=== PATIENT | female | born 1965 | race Caucasian/White ===

== ENCOUNTER 2023-04-06 02:05 | Outpatient (CLI) | payer MEDICAID, SELFPAY ==
--- NOTE | 2023-04-06 | DI.CTLCSR_ITS ---
Exam(s) CT CHEST LUNG CANCER SCREEN EXAM: CT CHEST LUNG CANCER SCREEN CLINICAL HISTORY: SCREENING FOR LUNG CANCER Z12.2 FORMER SMOKER TECHNIQUE: Imaging Protocol: Axial computed tomography images with coronal and sagittal reformatted images were created and reviewed COMPARISON: No exams were available for comparison FINDINGS: The examination is limited due to patient motion artifact. Tracheobronchial tree: Patent where visualized. Pulmonary parenchyma: No consolidation or dominant measurable mass. There is scarring and calcificati ons seen in the left major fissure. Lung Nodules: There is a 4 mm nodule in the medial aspect of the right lower lobe. Mediastinum and Heather: No dominant adenopathy or fluid collection. The esophagus is unremarkable. Thyroid gland: Unremarkable. Lymph nodes: Unremarkable. Pleura: No effusion or pneumothorax. Heart: The heart is not dilated. Mild coronary artery calcification. No pericardial effusion. Aorta: Thoracic aorta non-dilated.Atherosclerosis. Upper abdomen: Unremarkable. Soft Tissues: Unremarkable. Bones: Within normal limits. IMPRESSION: 4 mm right lower lobe pulmonary nodule. Lung RADS Cat 3 - Probably Benign: Probably benign finding(s) - short term follow-up suggested; inclu de nodules with a low likelihood of becoming a clinically active cancer. Lung-RADS 1.0 CATEGORIES: Category 0 - Prior chest CT exam(s) being located for comparison. Category 1 - Annual screening in 12 months. No nodules or definitely benign nodules. Category 2 - Annual screening in 12 months. Benign appearance. Nodules with low likelihood of becomin g active cancer. Category 3 - 6-month follow-up. Probably benign. Short-term follow-up suggested. Nodules with low lik elihood of becoming active cancer. Category 4A - 3-month follow-up and CT/PET if >8 mm in size. Suspicious finding. Findings which requi re additional testing. Category 4B - Findings which require additional testing and tissue sampling. Suspicious finding. Category 4X - Category 3 or 4 nodules with additional features or imaging findings that increases the suspicion of malignancy. Modifier S- Potentially clinically significant finding. (Non lung cancer) RADIATION DOSE DELIVERED: 75.31mGy.cm Total DLP 75.31mGy.cmTotal DLP DATA REPOSITORY: All CT scans at this facility are submitted to the National Radiology Data Registry (NRDR) Dose Index Registry (DIR) with the [employer] (ACR). RADIATION OPTIMIZATION: All CT scans at this facility use at least one of these dose optimization te chniques: automated exposure control; mA and/or kV adjustment per patient size (includes targeted exa ms where dose is matched to clinical indication); or iterative reconstruction.
== END 2023-04-06 02:25 ==
LOC: DI 02:05
PROVIDERS: Visit Provider Nurse Practitioner Family
DX: Z12.2 Encounter for screening for malignant neoplasm of respiratory organs (principal); R91.1 Solitary pulmonary nodule
CPT/HCPCS: 71271

== ENCOUNTER → 2023-09-29 02:38 | Outpatient (CLI) | payer MEDICAID, SELFPAY ==
--- NOTE | 2023-09-29 | DI.CTLCSR_ITS ---
Exam(s) CT CHEST LUNG CANCER SCREEN EXAM: CT CHEST LUNG CANCER SCREEN CLINICAL HISTORY: NODULE R91.1 SCREENING FOR LUNG CANCER. TECHNIQUE: Imaging Protocol: Low Dose Technique CONTRAST MATERIAL: None COMPARISON: CT CT CHEST LUNG CANCER SCREEN from 04/06/2023 FINDINGS: CHEST: LUNGS: Mild unchanged scarring is noted in the medial aspect of the right upper lobe. Also unchanged is a mild chronic appearing infiltrate in the medial segment of the right middle lobe. With respect to the previously described 4 millimeter nodule in the posterior aspect of the right lower lobe, it is unchanged. Adjacent to this is another smaller 3 mm nodule which is also unchanged from the CT sc an of 04/06/2023. There are no new additional nodules evident in the right lung. No pleural effusio ns.. In the opposite-left lung is there is scar versus surgical suture material again noted in the super ior segment of the left lower lobe extending from the lateral pleural surface to the midline, unchang ed. There are no new left lung nodules. No pleural effusions on either side. No significant focal findings in the trachea and mainstem bronchi. No bronchiectasis. MEDIASTINUM: There is no obvious hilar nor mediastinal adenopathy. CARDIAC: Heart size is normal. There is no pericardial effusion.Caliber of the thoracic aorta is wit hin normal limits. OTHER: None OSSEOUS: No significant osseous lesions.. IMPRESSION: 1. Stable appearance of bilateral lung findings when compared to the prior CT scan of 04/06/2023. 2. No new nodules nor pleural effusions nor intrathoracic adenopathy. 3. Lung RADS Cat 2 - Benign Appearance / Behavior: Nodules with a very low likelihood of becoming a c linically active cancer due to size or lack of growth Lung-RADS 1.0 CATEGORIES: Category 0 - Prior chest CT exam(s) being located for comparison. Category 1 - Annual screening in 12 months. No nodules or definitely benign nodules. Category 2 - Annual screening in 12 months. Benign appearance. Nodules with low likelihood of becomin g active cancer. Category 3 - 6-month follow-up. Probably benign. Short-term follow-up suggested. Nodules with low lik elihood of becoming active cancer. Category 4A - 3-month follow-up and CT/PET if >8 mm in size. Suspicious finding. Findings which requi re additional testing. Category 4B - Findings which require additional testing and tissue sampling. Category 4X - Category 3 or 4 nodules with additional features or imaging findings that increases the suspicion of malignancy. Modifier S- Potentially clinically significant findings (non lung cancer) RADIATION DOSE DELIVERED: Total DLP DATA REPOSITORY: All CT scans at this facility are submitted to the National Radiology Data Registry (NRDR) Dose Index Registry (DIR) with the [employer] (ACR). RADIATION OPTIMIZATION: All CT scans at this facility use at least one of these dose optimization te chniques: automated exposure control; mA and/or kV adjustment per patient size (includes targeted exa ms where dose is matched to clinical indication); or iterative reconstruction.
== END ==
PROVIDERS: Visit Provider Nurse Practitioner Family
DX: R91.1 Solitary pulmonary nodule (principal); Z12.2 Encounter for screening for malignant neoplasm of respiratory organs
CPT/HCPCS: 71271

== ENCOUNTER → 2024-06-02 05:39 | Outpatient (CLI) | payer MEDICAID, SELFPAY ==
--- NOTE | 2024-06-02 06:45 | DI.US_ITS ---
Exam(s) US HERNIA EXAM: US HERNIA CLINICAL HISTORY: R/O abd hernia, LUQ Pain, hx thoracotomy, VENTRAL HERNIA, K43.9, R10.12. TECHNIQUE: Ultrasound was performed using standard protocol. COMPARISON: CT CT CHEST LUNG CANCER SCREEN from 09/29/2023 FINDINGS: Sonographic assessment utilizing grayscale and color Doppler imaging was performed and targeted to th e area of clinical concern. There is a question of 2.5 centimeter area of shadowing in the left frontal flank region which could represent a fatty containing hernia. No mass or fluid collection. IMPRESSION: Question of a 2.5 centimeter fatty containing hernia in the left upper quadrant abdominal wall. CT c ould be performed for further evaluation if indicated. DATA REPOSITORY:
== END ==
PROVIDERS: Visit Provider Surgery
DX: K43.9 Ventral hernia without obstruction or gangrene (principal); R10.12 Left upper quadrant pain
CPT/HCPCS: 76857

== ENCOUNTER 2024-07-14 02:18 | Outpatient (CLI) | payer MEDICAID, SELFPAY ==
--- NOTE | 2024-07-14 08:30 | DI.CT_ITS ---
Exam(s) CT ABDOMEN WO/W EXAM: CT ABDOMEN WO/W CLINICAL HISTORY: ? left-sided diaphragmatic hernia,k44.9 TECHNIQUE: Imaging Protocol: Axial computed tomography images with coronal and sagittal reformatted images were created and reviewed CONTRAST MATERIAL: Intravenous: Omnipaque 350 contrast volume:85 mL Oral: Yes US US HERNIA from 06/02/2024 FINDINGS: ABDOMEN: Lung Bases: Normal where visualized. There is no evidence of a diaphragmatic hernia. Liver: There is diffuse decreased attenuation of the liver consistent with fatty infiltration. The l iver measures 19 cm long. No measurable mass. Portal, Superior Mesenteric, and Splenic Veins: Unremarkable. Gallbladder and Biliary Tract: No radiodense calculus or dilation. Pancreas: Normal density, no abnormal calcifications or inflammatory process. Spleen: Normal. Adrenals: No masses seen. Kidneys: Normal size, contour and axis. No radiodense stones or obstructive uropathy. No masses seen. Abdominal Aorta: Abdominal portion non-dilated. Atherosclerotic calcification is present. Bowel: No obstruction or bowel wall thickening. Peritoneal Cavity: No ascites, collection or mesenteric inflammatory response. No free air. Lymph Nodes: Within normal limits. Bones: Unremarkable. Soft Tissues: There is a tiny midline anterior abdominal wall fat containing hernia. This is appreci ated on the there is also a small midline anterior abdominal wall defect in the upper mid anterior ab domen (series 14, image 31 which may represent a small fat containing hernia. Inferior-most images o n the examination. IMPRESSION: 1. No evidence of a diaphragmatic hernia. 2. Small midline fat containing anterior abdominal wall hernias as described above. 3. No acute abdominal process. 4. Hepatomegaly and hepatic steatosis. RADIATION DOSE DELIVERED: 646.73mGy.cm Total DLP DATA REPOSITORY: All CT scans at this facility are submitted to the National Radiology Data Registry (NRDR) Dose Index Registry (DIR) with the [employer] (ACR). RADIATION OPTIMIZATION: All CT scans at this facility use at least one of these dose optimization te chniques: automated exposure control; mA and/or kV adjustment per patient size (includes targeted exa ms where dose is matched to clinical indication); or iterative reconstruction.
[2024-07-14] MEDS: Omnipaque 350 MG/ML 50 ML BTL IJ (14:32)
[2024-07-14] MEDS: Breeza Beverage 473 ML BTL PO (14:34)
[2024-07-14 15:10] LABS: CREATININE 0.8 mg/dL (0.55-1.02)
[2024-07-14] MEDS: Omnipaque 350 MG/ML 100 ML BTL IJ (15:39)
[2024-07-14] MEDS: Normal Saline - Diluent 50 ML VIAL IJ (15:40)
== END 2024-07-14 02:38 ==
LOC: DI 02:18
PROVIDERS: PCP Family Medicine; Visit Provider Surgery
DX: K76.0 Fatty (change of) liver, not elsewhere classified (principal); R16.0 Hepatomegaly, not elsewhere classified
CPT/HCPCS: 74170; 82565; J3490; Q9967

== ENCOUNTER 2024-09-30 00:22 | Outpatient (CLI) | payer MEDICAID, SELFPAY ==
--- NOTE | 2024-09-30 | DI.CTLCSR_ITS ---
Exam(s) CT CHEST LUNG CANCER SCREEN EXAM: CT CHEST LUNG CANCER SCREEN CLINICAL HISTORY: FORMER CIGARETTE SMOKER, Z87.891, SCREENING FOR LUNG CANCER TECHNIQUE: Imaging Protocol: Axial computed tomography images with coronal and sagittal reformatted images were created and reviewed. Lung Computer Aided Detection (CAD) was utilized. COMPARISON: CT CT CHEST LUNG CANCER SCREEN from 09/29/2023 FINDINGS: Tracheobronchial tree: Patent where visualized. No bronchiectasis. Pulmonary parenchyma: There is again seen scarring in the superior segment of the left lower lobe. N o architectural distortion. Lung Nodules: 3-4 mm nodule in the right lower lobe is stable. (Series 2, image 94). The 4 mm nodul e in the posterior aspect of the right lower lobe is also stable (series 2, image 89). There are no new pulmonary nodules. Mediastinum and Heather: No dominant adenopathy or fluid collection. The esophagus is unremarkable. Thyroid gland: Unremarkable. Lymph nodes: Unremarkable. Pleura: No effusion or pneumothorax. Heart: The heart is not dilated. Mild coronary artery calcification is present. No pericardial effus ion. Aorta: Thoracic aorta non-dilated.Atherosclerotic calcification is present. Upper abdomen: Unremarkable. Soft Tissues: Unremarkable. Bones: Within normal limits. IMPRESSION: Stable pulmonary nodules. No new pulmonary nodules. Lung RADS Cat 2 - Benign Appearance / Behavior: Nodules with a very low likelihood of becoming a clin ically active cancer due to size or lack of growth Lung-RADS 1.0 CATEGORIES: Category 0 - Prior chest CT exam(s) being located for comparison. Category 1 - Annual screening in 12 months. No nodules or definitely benign nodules. Category 2 - Annual screening in 12 months. Benign appearance. Nodules with low likelihood of becomin g active cancer. Category 3 - 6-month follow-up. Probably benign. Short-term follow-up suggested. Nodules with low lik elihood of becoming active cancer. Category 4A - 3-month follow-up and CT/PET if >8 mm in size. Suspicious finding. Findings which requi re additional testing. Category 4B - Findings which require additional testing and tissue sampling. Suspicious finding. Category 4X - Category 3 or 4 nodules with additional features or imaging findings that increases the suspicion of malignancy. Modifier S- Potentially clinically significant finding. (Non lung cancer) RADIATION DOSE DELIVERED: 47.71mGy.cm Total DLP 47.71mGy.cmTotal DLP DATA REPOSITORY: All CT scans at this facility are submitted to the National Radiology Data Registry (NRDR) Dose Index Registry (DIR) with the [employer] (ACR). RADIATION OPTIMIZATION: All CT scans at this facility use at least one of these dose optimization te chniques: automated exposure control; mA and/or kV adjustment per patient size (includes targeted exa ms where dose is matched to clinical indication); or iterative reconstruction.
== END 2024-09-30 00:42 ==
LOC: DI 00:22
PROVIDERS: PCP Family Medicine
DX: Z87.891 Personal history of nicotine dependence (principal); Z12.2 Encounter for screening for malignant neoplasm of respiratory organs
CPT/HCPCS: 71271

== ENCOUNTER 2024-10-19 06:07 | Day surgery (SDC) | payer MEDICAID, SELFPAY ==
--- NOTE | 2024-10-18 18:17 | HPE_ITS ---
Assessment and Plan Assessment and plan (1) Ventral hernia: Status: Acute Assessment and plan: We reviewed the plan for laparoscopic hernia repair today, what to expect in terms of the recovery, so we had a chance to ask any other questions that she had. We can proceed with hernia repair as planned History of Present Illness History of Present Illness Chief Complaint: abdominal pain Narrative: Ana Laura is a 59 year old woman wit upper updominal pain. She says she first noticed it maybe a year or 2 ago. It tends to be more obvious when she is up and moving around. She describes it as kind of a moving sensation, or mass that causes discomfort. She is able to resolve it by pushing inward, and medially. She notices what feels to be moving tissue as she pushes. She denies any nausea vomiting, or other obstructive symptoms. CT scan shows multiple midline ventral hernia defects Past medical history is most significant for what sounds like a sigmoid colectomy for diverticulitis performed at a hospital in [place]. She also had an open biopsy of her left lung for which she says is benign pathology, also performed out of state. Past family history includes multiple family members with cerebral aneurysms. She tells me her father had skin cancer, and perhaps leukemia or lymphoma. PFSH All Active Problems Prediabetes (Acute) Ventral hernia (Acute ~03/2024) Hypertension (Chronic) Anxiety (Chronic) Medical History Gerson Carrasco syndrome (geniculate herpes zoster) Lung nodule seen on imaging study Obesity Vertigo CVA (cerebral vascular accident) (~2014) pt. denies Pilar cyst Hyperlipidemia Insomnia History of Sosa's palsy Diverticulitis Surgical History History of local excision of skin lesion (~12/2020) scalp, posterior H/O: hysterectomy History of bilateral carpal tunnel release History of bladder repair surgery with mesh History of lung surgery (~09/2019) Video Assisted Thoracoscopic Surgery Wedge resection Left lower lobe Hx of left hemicolectomy (~2019) Social History Smoking/Tobacco Use Status: Former Tobacco Use Quit Date: 11/02/20 Smoking risk assessment performed?: Yes Alcohol Intake: current Alcohol Intake frequency: a few times a week Alcohol type: wine Drug use: Never Substance use type: does not use Housing: house Do you feel safe at home: Yes Do you feel safe in your relationship?: Yes Meds Allergies and Home Medications Allergies Allergy/AdvReac Type Severity Reaction Status Date / Time penicillin V Allergy Intermediate Hives Verified 10/19/24 06:29 fentanyl AdvReac Severe Bradycardia Verified 10/19/24 06:29 acetaminophen (From Percocet) AdvReac Intermediate Nausea Verified 10/19/24 06:29 oxycodone (From Percocet) AdvReac Intermediate Nausea Verified 10/19/24 06:29 tramadol AdvReac Intermediate Dizziness/Lighthead, Verified 10/19/24 06:29 nausea & dizziness Home Medications ?Medication ?Instructions ?Recorded ?Confirmed ?Type atorvastatin 10 mg tablet 10 mg PO DAILY 03/10/24 10/19/24 History cholecalciferol (vitamin D3) 1,250 1,250 mcg PO QWEEK 03/10/24 10/19/24 History mcg (50,000 unit) capsule escitalopram oxalate 5 mg tablet 5 mg PO DAILY 03/10/24 10/19/24 History estradiol 0.5 mg tablet 0.5 mg PO DAILY 03/10/24 10/19/24 History hydrochlorothiazide 25 mg tablet 25 mg PO DAILY 03/10/24 10/19/24 History lisinopril 40 mg tablet 40 mg PO DAILY 03/10/24 10/19/24 History semaglutide (weight loss) 0.25 0.25 mg subcut QWEEK 03/10/24 10/18/24 History mg/0.5 mL subcutaneous pen injector (Wegovy) meclizine 25 mg tablet 25 mg PO TID 05/13/24 10/19/24 History Exam Const General: cooperative, healthy appearing and not in acute distress Neck Neck: normal visual inspection, no lymphadenopathy and supple Resp Effort & Inspection: normal respiratory effort Auscultation: clear to auscultation bilaterally Cardio Jugular venous pressure: no JVD Rate: regular rate Rhythm: regular rhythm Heart Sounds: S1 normal and S2 normal GI Inspection: normal to inspection Palpation: soft, no guarding and nontender Percussion: normal to percussion Auscultation: normal bowel sounds Neuro General: patient alert, patient awake and patient oriented x3 Psych Appearance: grossly normal
--- NOTE | 2024-10-18 18:20 | W.PM.DSUDISC ---
Date of service: 10/19/24 Discharge Plan Disposition Patient Disposition: Home Condition: Good Discharge Details Attending Provider: Daryn Tidwell Primary Care Provider: Los Jacobs Home Meds and New Rx's Prescriptions: Continued atorvastatin 10 mg tablet 10 mg PO DAILY escitalopram oxalate 5 mg tablet 5 mg PO DAILY Wegovy 0.25 mg/0.5 mL pen injector 0.25 mg subcut QWEEK Rx Instructions: administer weeks 1 through 4 of therapy hydrochlorothiazide 25 mg tablet 25 mg PO DAILY lisinopril 40 mg tablet 40 mg PO DAILY estradiol 0.5 mg tablet 0.5 mg PO DAILY Rx Instructions: off 5 days; repeat cycle cholecalciferol (vitamin D3) 1,250 mcg (50,000 unit) capsule 1,250 mcg PO QWEEK meclizine 25 mg tablet 25 mg PO TID Discharge Instructions Instructions: Abdominal Hernia Repair, Laparoscopic Surgery Additional Instructions: Ana Laura, was great seeing you today, and I hope you are comfortable through the procedure. We are able to clear everything off, and patched the holes from the underside just like we talked about beforehand. Everything went very smoothly, and hopefully will make a quick recovery. I tried to use as much long-acting anesthetic as possible to help provide some relief from the pain. This will start to wear off over the next 24 to 72 hours, so do not be alarmed if you notice more pain in the days to come. I did add a prescription for Dilaudid as you asked for to help with pain if needed. Keep the lifting less than a gallon of milk until we see each other in the office. Do not be alarmed if you get some bruising around the incision or the port sites, that is extremely common and nothing to worry about. If any of the sites start turning bright red, or if there is any foul-smelling discharge from them, please let me know. I do not anticipate that happening, but I would like to be aware if things start changing. If you need anything at all, please do not hesitate to ask, otherwise, I look forward to seeing you in the office on November 08 at 9 AM. 1. Resume all of your regular medications. 2. Alternate heating pads and ice packs every 15 minutes over the incisions, or any areas of pain for your comfort. 3. Alternate [id number]-vycghcl Tylenol and ibuprofen every 6 hours for the first 2 days, then use as needed. Use the prescription for Dilaudid if needed for more severe pain. 4. Leave bandages in place for 24 hours, then remove. 5. Shower with warm soapy water. Pat dry. Use a bandaid if needed to protect your clothing. 6. No soaking or tub baths until I see you in the office. 7. No heavy lifting until I see you in the office. 8. Call the office (or go directly to the emergency room after hours) if you notice any of the following: Develop chills (warm to touch), or if you have a thermometer and your temperature is above 101 Difficulty breathing or difficultly swallowing Persistent vomiting Any bleeding ? exceeding one tablespoon 9. Call your physician if the site where your intravenous was started becomes red, swollen, painful, and warm to touch. Stand Alone Forms: Anesthesia Discharge InstJo Ann Connell (DSU) Referrals: Daryn Tidwell MD [ [facility] STAFF PHYSICIAN] - 11/08/24 9:00 am Activity:: Activity as Tolerated Remove Dressings/Wound Care:: 24 hours Shower/Bathe:: 24 hours Diet:: As Tolerated Discharge Orders Discharge Orders: Discharge Order (Routine); Ordered 10/18/24 Ordered By: Daryn Tidwell DS: Diagnosis Discharge Diagnosis (1) Ventral hernia: Status: Acute Asessment and Plan: Outpatient follow-up
--- NOTE | 2024-10-18 18:22 | W.PM.OP ---
Operative Note Operative Note PRE-OP DIAGNOSIS: Ventral hernia Ventral incisional hernia PROCEDURE: laparoscopic hernia repair SURGEON: Daryn Tidwell CENTRAL STERILIZATION TECHNICIAN: Andreea Flowers ANESTHESIA TYPE: General LMA/ETT Refer to Anesthesia Record ESTIMATED BLOOD LOSS: 25 PATHOLOGY: none sent COMPLICATIONS: None Patient was transported to: PACU Patient's condition: stable Implants: Bard Ventralight ST hernia mesh 25 x 20 cm Indications: Randi is a 59-year-old woman with a symptomatic ventral hernia Findings: Multiple hernia defects along previous midline surgical incision Procedure Description: I met with Randi in the preoperative area, we reviewed the plan for surgery. We reviewed her interval history and physical exam. Next, we moved back to the operating room, and she was assisted onto the OR table. Great care was taken to make sure that she was padded and supported appropriately. Next, general endotracheal anesthesia was induced. A Noguera urinary catheter was then inserted using aseptic technique. Anterior abdominal wall was then prepped and draped in the usual fashion. I started by placing a 5 mm port in the left upper quadrant in the area of Aponte's point. Peritoneal access was established under the direct vision of the laparoscope. The peritoneum was insufflated. There were some filmy adhesions in the left upper quadrant that were easily dissected free with the end of the camera. There were more substantial adhesions along the midline, and a little bit in the left lower quadrant. I was able to advance the camera over to the patient's right side, which was largely free of adhesions. Therefore, I established another 5 mm port lateral on the left side, and slightly below this. The camera was then moved over to the left side, and using the LigaSure device, all of the adhesions were cleanly dissected off the anterior abdominal wall. This dissection was carried down from the falciform ligament towards the pubic symphysis. The dissection extended towards the left lower quadrant to ensure that all of that was clear as well. Once all of the adhesions were mobilized free, it was clear that there were multiple hernia defects along the midline mostly involving the upper portion of the incision. The area below the umbilicus. Well-approximated and healed. I then marked out the anterior abdominal wall to establish the size of the mesh. It required about 19 cm from top to bottom to ensure adequate overlap of all the defects. The most appropriate mesh that we had on hand was 25 cm from top to bottom, therefore this was selected. Next, with the assistance of the laparoscope, I performed bilateral tap blocks on both the left and right side. The 5 mm port in the left upper quadrant was then upsized to a 12 port, and the mesh was passed into the peritoneal cavity. The echo positioning system was used to help deliver this up against the anterior abdominal wall. There was excellent overlap of all of the hernia defects. The 4 cardinal points of the mesh were fixed in place with a laparoscopic tacking device. The mesh was examined once again, and appeared to be appropriately seated. Therefore, laparoscopic tacks were used to affix the remainder of the mesh in place. The positioning system was then removed by way of the 12 mm port site, and the camera was reinserted and the mesh was examined 1 last time. It was seated beautifully against the anterior abdominal wall, with no folds, and there was no evidence of any areas where there could be intrusion of any of the visceral contents around the tacks. The 12 mm port was removed, and the port closure device system was then advanced into the site, 0 Vicryl stitches were used to close the fascial defect here. Once this was complete, the other two 5 mm ports were removed. The skin and subcutaneous tissues were then irrigated clean. All the port sites were hemostatic. They were closed with subcuticular stitches and bandages. Noguera catheter was removed, the patient without awakened from the anesthetic, extubated, and transferred to the recovery unit. Date of Procedure: 10/19/24
[2024-10-19] VITALS (40 sets, daily range): BP systolic 103–140; BP diastolic 53–93; PULSE 54–77; RESP 7–21; TEMP 35.8–36.6; O2SAT 94–100; BMI 34.7
[2024-10-19] MEDS: Gabapentin 300 MG CAP PO (06:33)
[2024-10-19] MEDS: Celecoxib 200 MG CAP PO (06:33)
[2024-10-19] MEDS: Acetaminophen 500 MG TAB 1000 MG PO (06:33)
[2024-10-19] MEDS: Normal Saline 1,000 ML 80 ML IV (06:47)
--- NOTE | 2024-10-19 06:54 | W.ANESPRE ---
General Info Date of Service Date Performed: 10/19/24 Height: 5 ft Weight: 80.6 kg Body Mass Index (BMI): 34.7 Surgical Procedure: Operation Date: 10/19/24 07:40 Proposed Procedure Side Surgeon p Hernia Ventral Laparoscopic w/Mesh Daryn Tidwell MD Meds Allergies and Home Medications Allergies Allergy/AdvReac Type Severity Reaction Status Date / Time penicillin V Allergy Intermediate Hives Verified 10/19/24 06:29 fentanyl AdvReac Severe Bradycardia Verified 10/19/24 06:29 acetaminophen (From Percocet) AdvReac Intermediate Nausea Verified 10/19/24 06:29 oxycodone (From Percocet) AdvReac Intermediate Nausea Verified 10/19/24 06:29 tramadol AdvReac Intermediate Dizziness/Lighthead, Verified 10/19/24 06:29 nausea & dizziness Home Medication ?Medication ?Instructions ?Recorded atorvastatin 10 mg tablet 10 mg PO DAILY 03/10/24 cholecalciferol (vitamin D3) 1,250 1,250 mcg PO QWEEK 03/10/24 mcg (50,000 unit) capsule escitalopram oxalate 5 mg tablet 5 mg PO DAILY 03/10/24 estradiol 0.5 mg tablet 0.5 mg PO DAILY 03/10/24 hydrochlorothiazide 25 mg tablet 25 mg PO DAILY 03/10/24 lisinopril 40 mg tablet 40 mg PO DAILY 03/10/24 semaglutide (weight loss) 0.25 0.25 mg subcut QWEEK 03/10/24 mg/0.5 mL subcutaneous pen injector (Wegovy) meclizine 25 mg tablet 25 mg PO TID 05/13/24 Current Visit Medications: Current Medications Generic Name Dose Route Start Last Admin Trade Name Freq PRN Reason Stop Dose Admin Acetaminophen 1,000 mg 10/19/24 06:00 10/19/24 06:33 Acetaminophen 500 Mg Tab PO 10/19/24 23:59 1,000 mg PREOP FRANCK Administration Celecoxib 200 mg 10/19/24 06:00 10/19/24 06:33 Celecoxib 200 Mg Cap PO 10/19/24 23:59 200 mg PREOP FRANCK Administration Gabapentin 300 mg 10/19/24 06:00 10/19/24 06:33 Gabapentin 300 Mg Cap PO 10/19/24 23:59 300 mg PREOP FRANCK Administration Cefazolin Sodium/Dextrose 2 gm in 50 mls @ 100 mls/hr 10/19/24 06:00 Ancef Duplex IVPB 10/19/24 23:59 PREOP FRANCK Sodium Chloride 1,000 mls @ 80 mls/hr 10/19/24 06:45 10/19/24 06:47 Saline 1000ml Bag IV 11/18/24 06:44 80 mls/hr INFUSION FRANCK Administration IV Miscellaneous Supplies 1 each 10/19/24 06:00 Iv Access IV 10/19/24 23:59 DIRECTED FRANCK Sodium Chloride 0 ml 10/19/24 06:00 Normal Saline Flush 10 Ml Syr IV 10/19/24 23:59 PRN PRN Sodium Chloride 0 ml 10/19/24 06:00 Normal Saline 10 Ml Vial IJ 10/19/24 23:59 DIRECTED PRN Sterile Water 0 ml 10/19/24 06:00 Water,Injection,Sterile 10 Ml Vial IJ 10/19/24 23:59 DIRECTED PRN PFSH Active Problems Active Problems: Problem Status Onset Code Prediabetes Acute R73.03 Ventral hernia Acute ~03/2024 K43.9 Hypertension Chronic I10 Anxiety Chronic F41.9 Medical History Medical History Gerson Carrasco syndrome (geniculate herpes zoster) Lung nodule seen on imaging study Obesity Vertigo CVA (cerebral vascular accident) (~2014) pt. denies Pilar cyst Hyperlipidemia Insomnia History of Sosa's palsy Diverticulitis Surgical History Surgical History History of local excision of skin lesion (~12/2020) scalp, posterior H/O: hysterectomy History of bilateral carpal tunnel release History of bladder repair surgery with mesh History of lung surgery (~09/2019) Video Assisted Thoracoscopic Surgery Wedge resection Left lower lobe Hx of left hemicolectomy (~2019) Tobacco Smoking/Tobacco Use Status: Former Tobacco Use Alcohol Alcohol Intake: current Alcohol intake frequency: a few times a week Alcohol type: wine Substance Use Substance use: Never Substance use type: does not use Vital Signs and Lab Results Vital Signs Most Recent Vital Signs in EMR: Most Recent Vital Signs Temp Pulse Resp BP Pulse Ox 35.9 C L 68 16 122/70 98 10/19/24 06:08 10/19/24 06:08 10/19/24 06:08 10/19/24 06:08 10/19/24 06:08 Lab Results Blood Type / Crossmatch: No Data to Display Complete Blood Count: No Data to Display Complete Metabolic Panel: No Data to Display Liver Function Panel: No Data to Display Coagulation Panel: No Data to Display Cardiac Panel: No Data to Display Arterial Blood Gas: No Data to Display Venous Blood Gas: No Data to Display Pancreas Panel: No Data to Display Thyroid Panel: No Data to Display Infectious Disease: No Data to Display Blood Cultures: No Data to Display Toxicology Panel: No Data to Display Anesthesia Assessment and Plan Anesthesia History Personal History: No History of Anesthesia Complications Family History: No Family History of Anesthesia Complications Exercise Tolerance Exercise Tolerance: Metabolic Equivalents>4 Pertinent Negatives Pertinent Negatives: No Symptoms of GERD, No Major Cardiovascular Symptoms or Complaints and No History of CVA/TIA Cardiac & Pulmonary Exam Cardiac Exam: Normal S1/S2 Heart Sounds Pulmonary Exam: Clear Bilateral Breath Sounds Implantable Cardiac Device Does patient have a Pacemaker or an ICD?: No Airway Exam Known Difficult Airway: No Mallampati Class: 3 Mouth Opening: Narrow (< 3cm) Thyromental Distance: Greater than 3 cm Neck Range of Motion: Full ROM Neck Circumference: Normal Teeth Condition: Normal Dentition ASA Classification ASA Score: ASA 3 Emergency Case?: No NPO Status NPO Status: NPO Clears >2 hours, Solids >8 hours Anesthesia Plan Resuscitation Status: Full Code Anesthesia Technique: General Anesthesia Airway Planned: Endotracheal Tube Monitors Used: Standard Monitors
[2024-10-19] MEDS: ceFAZolin 2 GM/50 ML BAG IVPB (08:12)
[2024-10-19] MEDS: Bupivacaine 0.25% Pres-Free 30 ML VIAL (08:28)
[2024-10-19] MEDS: Bupivacaine LIPOSOME/PF 133 MG/10 ML VIAL IJ (08:29)
[2024-10-19] MEDS: Normal Saline 20 ML VIAL (08:29)
[2024-10-19] MEDS: HYDROmorphone 1 MG/ML SYR IVP ×4 (09:56→10:34)
[2024-10-19] MEDS: Ketorolac 15 MG/ML VIAL IVP (10:53)
[2024-10-19] MEDS: HYDROmorphone 2 MG TAB PO (11:37)
--- NOTE | 2024-10-19 11:45 | W.ANESPOSTOP ---
Postoperative Evaluation Date, Time and Location Date Performed: 10/19/24 Time Performed: 11:36 Patient Location: Day Surgery Unit Vital Signs Most Recent Imported Vital Signs: Most Recent Vital Signs Temp Pulse Resp BP Pulse Ox 35.8 C L 63 16 121/73 97 10/19/24 11:07 10/19/24 11:07 10/19/24 11:07 10/19/24 11:07 10/19/24 11:07 Pain Score Most Recent Pain Score: Most Recent Pain Score Pain Level 5 10/19/24 10:35 Assessment Mental Status: Awake (Alert & Oriented to Patient Baseline) Airway and Respiratory Function: Patent airway with normal (patient baseline) respiratory exam Cardiovascular Function: Hemodynamically Stable Hydration Status: Adequately Hydrated Nausea & Vomiting: No Nausea or Vomiting Pain: Pain is tolerable per patient Peripheral Nerve Block: Patient did not receive a nerve block
== END 2024-10-19 12:43 | disposition home or self-care (01) ==
LOC: SUR 06:07
PROVIDERS: PCP Family Medicine; Visit Provider Surgery
PROC: 0WQF4ZZ Repair Abdominal Wall, Percutaneous Endoscopic Approach (ICD-10-PCS; CPT 49595; principal; 2024-10-19 07:30)
DX: K43.9 Ventral hernia without obstruction or gangrene (principal); I10 Essential (primary) hypertension
CPT/HCPCS: 49595; C1781; C9290; J0665; J0690; J1100; J1171; J1885; J2003; J2250; J2371; J2405; J2704